=== PATIENT | female | born 1980 | race Caucasian/White ===

== ENCOUNTER 2019-04-12 04:51 | Inpatient (IN) | payer MEDICAID ==
[2019-04-12] MEDS ORDERED: Sodium Chloride 0.9% 10 ML Syringe FLUSH PRN (05:49)
[2019-04-12] MEDS ORDERED: Lactated Ringers 1,000 ML IV SCH (06:00)
[2019-04-12] MEDS ORDERED: Oxytocin/Lactated Ringers 10 UNIT/1,000 ML BAG IV SCH (06:00)
[2019-04-12] MEDS ORDERED: Benzocaine/Menthol 20%-0.5% Spray 56 GM Canister TOP PRN (08:11)
[2019-04-12] MEDS ORDERED: Witch Hazel Medicated Pads 40/Jar TOP PRN (08:11)
[2019-04-12] MEDS ORDERED: Docusate Sodium 100 MG Cap PO PRN (08:11)
[2019-04-12] MEDS ORDERED: Hydrocortisone Acetate 25 MG Supp RECTAL PRN (08:11)
--- NOTE | 2019-04-12 08:28 | PCM.LDHP ---
L&D History of Present Illness - General Date of Service: 04/12/19 Admit Problem/Dx: Admission Diagnosis/Problem Admission Diagnosis/Problem care Source of Information: Patient, Other (friend) - History of Present Illness Introduction:: 39 year old with no care presents to labor and delivery with contractions. Her friend called prior to arrival and asked if they could come in for contractions. Stated she had her friend Alisha Lundberg with an SHEILA of 3.10 and she was having contractions that started an hour prior to them calling. Patient has had no care. Had one visit with me for amenorrhea and had a positive test. At that time I ordered an ultrasound for early date confirmation that she did not come for. She then called and scheduled for this in January but did not schedule an appointment. We were unable to reach for ultrasound results. This morning she presented and was 8 cm. Reports good movement. No leaking of fluid or bleeding. Severity: Moderate Associated Symptoms: Reports: N - Related Data Allergies/Adverse Reactions: Allergies Allergy/AdvReac Type Severity Reaction Status Date / Time No Known Allergies Allergy Verified 04/12/19 08:04 Past Medical History - Past Health History Medical/Surgical History: Denies Medical/Surgical History (denies medical problems) - Past Surgical History GI Surgical History: Reports: Other (See Below) (laparotomy for "hole in diaphragm" with trauma) Endocrine Surgical History: Reports: Thyroidectomy (partial) Social & Family History - Family History Family Medical History: Noncontributory (denies other than "cancers" - uncertain what kinds) - Alcohol Use Alcohol Use History: No Alcohol Use in Last Twelve Months: No - Recreational Drug Use Recreational Drug Use: No Drug Use in Last 12 Months: No Recreational Drug Use Comment: Denies any history of drug use. When asked specificially about positive drug screen she states within last week has been "around" people using amphetamines and opioids and alcohol. States her last drink was at [employer] last year. - Living Situation & Occupation Living situation: Reports: with Significant Other Occupation: Unemployed Social History Comment: Moved her 1.5 years ago H&P Review of Systems - Review of Systems: Review Of Systems: Comprehensive ROS is negative, except as noted in HPI. L&D Exam - Exam Exam: See Below - Vital Signs Vital Signs: Last Vital Signs Temp 36.7 C 04/12/19 05:00 Pulse 103 H 04/12/19 05:00 Resp 18 04/12/19 05:00 BP 139/101 H 04/12/19 05:00 Pulse Ox 99 04/12/19 05:00 Weight: 64.864 kg - OB Specific Fundal Height In cm: 33 Contraction Intensity: Moderate to Strong Movement: Active Heart Tones: Present Presentation: Vertex - Flores Score Flores Score Effacement: >80% Flores Score Dilation: > 5 cm (10) Flores Score 's Station: +1, +2 (SROM with thick meconium) - Exam General: Alert, Moderate Distress HEENT: Conjunctiva Clear, PERRLA Neck: Supple, Trachea Midline, Other (significantly poor dentition) Lungs: Clear to Auscultation, Normal Respiratory Effort Cardiovascular: Regular Rate, Regular Rhythm GI/Abdominal Exam: Normal Bowel Sounds, Soft, Non-Tender, No Organomegaly, No Distention Rectal Exam: Normal Exam Genitourinary: Normal external exam Extremities: Normal Capillary Refill Skin: Warm, Dry, Intact Neurological: Cranial Nerves Intact, Reflexes Equal Bilateral Psychiatric: Alert, Normal Affect, Normal Mood - Patient Data Lab Results Last 24 hrs: Laboratory Results - last 24 hr 04/12/19 04/12/19 04/12/19 Range/Units 05:12 05:12 05:12 Sodium 137 (136-145) mEq/L Potassium 4.2 (3.5-5.1) mEq/L Chloride 103 (98-107) mEq/L Carbon Dioxide 19 L (21-32) mEq/L Anion Gap 19.2 H (5-15) BUN 21 H (7-18) mg/dL Creatinine 1.1 H (0.55-1.02) mg/dL Est Cr Clr Drug Dosing TNP Estimated GFR (MDRD) 55 (>60) mL/min BUN/Creatinine Ratio 19.1 H (14-18) Glucose 102 (74-106) mg/dL Calcium 8.6 (8.5-10.1) mg/dL Total Bilirubin 1.2 H (0.2-1.0) mg/dL AST 319 H (15-37) U/L ALT 239 H (14-59) U/L Alkaline Phosphatase 352 H (46-116) U/L Total Protein 7.0 (6.4-8.2) g/dl Albumin 2.8 L (3.4-5.0) g/dl Globulin 4.2 gm/dL Albumin/Globulin Ratio 0.7 L (1-2) Urine Color (Yellow) Urine Appearance (Clear) Urine pH (5.0-8.0) Ur Specific [place] (1.005-1.030) Urine Protein (Negative) Urine Glucose (UA) (Negative) Urine Ketones (Negative) Urine Occult Blood (Negative) Urine Nitrite (Negative) Urine Bilirubin (Negative) Urine Urobilinogen (0.2-1.0) Ur Leukocyte Esterase (Negative) Urine Opiates Screen (SUWJBD=955) Ur Buprenorphine Scrn (CUTOFF=10) Ur Oxycodone Screen (DCL9KV=820) Urine Methadone Screen (GNDPAY=369) Ur Propoxyphene Screen (QMFCPY=195) Ur Barbiturates Screen (JQLGTN=780) Ur Tricyclics Screen (KZOVCY=344) Ur Phencyclidine Scrn (CUTOFF=25) Ur Amphetamine Screen (ISGPMO=065) U Methamphetamines Scrn (KMNSYT=888) U Benzodiazepines Scrn (UNFVTY=088) U Cocaine Metab Screen (CFSUPR=352) U Marijuana (THC) Screen (CUTOFF=50) Ethyl Alcohol (0.00) gm% Hepatitis C Antibody Negative (NEGATIVE) Blood Type B POSITIVE Gel Antibody Screen Negative 04/12/19 04/12/19 04/12/19 Range/Units 05:12 05:25 05:25 Sodium (136-145) mEq/L Potassium (3.5-5.1) mEq/L Chloride (98-107) mEq/L Carbon Dioxide (21-32) mEq/L Anion Gap (5-15) BUN (7-18) mg/dL Creatinine (0.55-1.02) mg/dL Est Cr Clr Drug Dosing Estimated GFR (MDRD) (>60) mL/min BUN/Creatinine Ratio (14-18) Glucose (74-106) mg/dL Calcium (8.5-10.1) mg/dL Total Bilirubin (0.2-1.0) mg/dL AST (15-37) U/L ALT (14-59) U/L Alkaline Phosphatase (46-116) U/L Total Protein (6.4-8.2) g/dl Albumin (3.4-5.0) g/dl Globulin gm/dL Albumin/Globulin Ratio (1-2) Urine Color Nichole H (Yellow) Urine Appearance Slt cloudy H (Clear) Urine pH 5.5 (5.0-8.0) Ur Specific [place] > or = 1.030 (1.005-1.030) Urine Protein 1+ H (Negative) Urine Glucose (UA) Negative (Negative) Urine Ketones Trace H (Negative) Urine Occult Blood Trace-intact H (Negative) Urine Nitrite Negative (Negative) Urine Bilirubin 2+ H (Negative) Urine Urobilinogen 2.0 H (0.2-1.0) Ur Leukocyte Esterase Negative (Negative) Urine Opiates Screen Presumptive positive H (QVDEDS=937) Ur Buprenorphine Scrn Negative (CUTOFF=10) Ur Oxycodone Screen Negative (VGV2LS=039) Urine Methadone Screen Negative (YJAMVY=052) Ur Propoxyphene Screen Negative (DDAKHA=074) Ur Barbiturates Screen Negative (RVZHAJ=406) Ur Tricyclics Screen Negative (TUPEZE=051) Ur Phencyclidine Scrn Negative (CUTOFF=25) Ur Amphetamine Screen Presumptive positive H (EGAKKZ=649) U Methamphetamines Scrn Presumptive positive H (HIPZNN=448) U Benzodiazepines Scrn Negative (WTYEYU=038) U Cocaine Metab Screen Negative (SHDIYZ=945) U Marijuana (THC) Screen Negative (CUTOFF=50) Ethyl Alcohol > 3.00 (0.00) gm% Hepatitis C Antibody (NEGATIVE) Blood Type Gel Antibody Screen Result Diagrams: 04/12/19 05:12 Problem List Initiated/Reviewed/Updated: Yes Orders Last 24hrs: Active Orders 24 hr Category Date Time Status Activity as Tolerated [RC] PER UNIT ROUTINE Care 04/12/19 08:11 Active Activity as Tolerated [RC] PFP Care 04/12/19 05:49 Inactive Communication Order [RC] ASDIRECTED Care 04/12/19 05:49 Inactive Heart Tones [RC] ASDIRECTED Care 04/12/19 05:50 Inactive Non Stress Test [RC] PER UNIT ROUTINE Care 04/12/19 05:49 Inactive Notify Provider [RC] PFP Care 04/12/19 05:49 Inactive Notify Provider [RC] PRN Care 04/12/19 05:49 Inactive Peripheral IV Care [RC] . DIRECTED Care 04/12/19 05:50 Inactive Vital Signs [RC] ASDIRECTED Care 04/12/19 08:11 Active Vital Signs [RC] PER UNIT ROUTINE Care 04/12/19 05:49 Inactive Consult to Case Management/Engineering Group Leader [CONS] Cons 04/12/19 08:11 Active Routine Regular Diet [DIET] Diet 04/12/19 Lunch Active CBC W/O DIFF,HEMOGRAM [HEME] Routine Lab 04/13/19 07:55 Ordered COMPREHENSIVE METABOLIC PN,CMP [CHEM] AM Lab 04/13/19 05:11 Ordered HEPATITIS B SURFACE AG [CHEM] Stat Lab 04/12/19 05:25 Received HIV AG/AB W/REFLEX [REF] Stat Lab 04/12/19 05:25 Received PATIENT RETYPE [BBK] Routine Lab 04/12/19 07:17 Ordered RAPID PLASMA REAGIN,RPR [CHEM] Routine Lab 04/12/19 05:25 Received RUBELLA ANTIBODY IGG [CHEM] Stat Lab 04/12/19 05:25 Received Benzocaine/Menthol [Dermoplast Pain Relief [place]] Med 04/12/19 08:11 Active See Dose Instructions TOP ASDIRECTED PRN Docusate Sodium [Colace] Med 04/12/19 08:11 Active 100 mg PO BID PRN Hydrocortisone Acetate [Anucort-HC] Med 04/12/19 08:11 Active 25 mg RECTAL BID PRN Ibuprofen [Motrin] Med 04/12/19 08:11 Active 600 mg PO Q6H PRN Witch Perla [Tucks] Med 04/12/19 08:11 Active 1 pad TOP ASDIRECTED PRN Assess Lochia [WOMSER] Per Unit Routine Oth 04/12/19 08:11 Ordered Assess Uterine Involution [WOMSER] Per Unit Routine Oth 04/12/19 08:11 Ordered Breast Pump [WOMSER] Per Unit Routine Oth 04/12/19 08:11 Ordered Heat Therapy [OM.PC] PRN Oth 04/12/19 08:11 Ordered Heat Therapy [OM.PC] PRN Oth 04/13/19 08:11 Ordered Medication Administration Instruction [OM.PC] Routine Oth 04/12/19 08:11 Ordered Perineal Care [OM.PC] Per Unit Routine Oth 04/12/19 08:11 Ordered Sitz Bath [OM.PC] Per Unit Routine Oth 04/12/19 08:11 Ordered Resuscitation Status Routine Resus Stat 04/12/19 05:49 Ordered Medication Orders Benzocaine/Menthol (Dermoplast Pain Relief [place]) 0 gm TOP ASDIRECTED PRN PRN Reason: Perineal Comfort Measure Docusate Sodium (Colace) 100 mg PO BID PRN PRN Reason: Constipation Hydrocortisone Acetate (Anucort-Hc) 25 mg RECTAL BID PRN PRN Reason: Hemorrhoid pain Ibuprofen (Motrin) 600 mg PO Q6H PRN PRN Reason: Mild pain or fever Witch Perla (Tucks) 1 pad TOP ASDIRECTED PRN PRN Reason: Pain Assessment/Plan Comment:: 39 year old with no care at 36w5d by best dating available which is a second trimester ultrasound. Active labor and rapid thereafter. See delivery note. package labs Given no care and mild hypertension (could be pain related) will get package, urine toxicology, CMP, CBC. Meconium so notify pullboat engineer for delivery. Social work consult given no care.
--- NOTE | 2019-04-12 08:44 | PCM.SN ---
- Free Text/Narrative Note: Stage I - Patient presented in active labor. SROM thick meconium stained amniotic fluid. Progressed to complete. Stage II - of viable female, weight 2390g, 8/9 APGARS at 0530. Head delivered in controlled manner over intact perineum. Body and shoulders without difficulty. Cord clamped and cut and taken to warmer for evaluation. Stage III - of intact placenta. 3vc. Meconium stained. EBL 200. No lacerations.
--- NOTE | 2019-04-12 08:46 | PCM.SN ---
- Free Text/Narrative Note: Discussed lab results with patient. Discussed when chemistry panel returned with significantly elevated LFTs I did add a blood alcohol given the other positive drug testing. Discussed presumptive positives for opioids, amphetamine and methamphetamine. Patient reports no history of use either now or in past. Does state she has been around it recently but not used herself. Discussed will consult case management social worker and contact [facility] case management social worker. Patient voices understanding.
[2019-04-12] MEDS: Nicotine 14 MG/24 Hr Patch TRDERM SCH (17:00)
[2019-04-12] MEDS: Ibuprofen 600 MG Tab PO PRN (20:06)
[2019-04-12] MEDS: LORazepam 1 MG Tab PO PRN (21:34)
[2019-04-13] MEDS: Ibuprofen 600 MG Tab PO PRN ×3 (04:04→21:16)
[2019-04-13] MEDS: LORazepam 1 MG Tab PO PRN ×4 (04:05→21:15)
[2019-04-13] MEDS ORDERED: Acetaminophen 325 MG Tab PO PRN (08:33)
--- NOTE | 2019-04-13 08:34 | PCM.PNPP ---
- General Info Date of Service: 04/13/19 Functional Status: Reports: Pain Controlled - Review of Systems General: Reports: No Symptoms HEENT: Reports: No Symptoms Pulmonary: Reports: No Symptoms Cardiovascular: Reports: No Symptoms Gastrointestinal: Reports: No Symptoms Genitourinary: Reports: No Symptoms Musculoskeletal: Reports: No Symptoms Skin: Reports: No Symptoms Neurological: Reports: No Symptoms Psychiatric: Reports: No Symptoms - General Info Date of Service: 04/13/19 - Patient Data Vital Signs - Most Recent: Last Vital Signs Temp 36.7 C 04/13/19 04:05 Pulse 60 04/13/19 04:05 Resp 18 04/13/19 04:05 BP 138/97 H 04/13/19 04:05 Pulse Ox 94 L 04/13/19 04:05 Weight - Most Recent: 64.864 kg I&O - Last 24 Hours: Intake & Output 04/12/19 04/13/19 04/13/19 22:59 06:59 14:59 Intake Total 680 Balance 680 Lab Results - Last 24 Hours: Laboratory Results - last 24 hr 04/12/19 04/13/19 04/13/19 Range/Units 05:25 05:42 05:42 WBC 14.79 H (3.98-10.04) K/mm3 RBC 4.40 (3.98-5.22) M/mm3 Hgb 13.7 (11.2-15.7) gm/dl Hct 42.7 (34.1-44.9) % MCV 97.0 H (79.4-94.8) fl MCH 31.1 (25.6-32.2) pg MCHC 32.1 L (32.2-35.5) g/dl RDW Std Deviation 46.3 (36.4-46.3) fL Plt Count 173 L (182-369) K/mm3 MPV 12.5 H (9.4-12.3) fl Sodium 140 (136-145) mEq/L Potassium 4.4 (3.5-5.1) mEq/L Chloride 105 (98-107) mEq/L Carbon Dioxide 25 (21-32) mEq/L Anion Gap 14.4 (5-15) BUN 10 (7-18) mg/dL Creatinine 0.9 (0.55-1.02) mg/dL Est Cr Clr Drug Dosing 69.42 mL/min Estimated GFR (MDRD) > 60 (>60) mL/min BUN/Creatinine Ratio 11.1 L (14-18) Glucose 49 L (74-106) mg/dL Calcium 8.5 (8.5-10.1) mg/dL Total Bilirubin 0.5 (0.2-1.0) mg/dL AST 286 H (15-37) U/L ALT 213 H (14-59) U/L Alkaline Phosphatase 275 H (46-116) U/L Total Protein 6.5 (6.4-8.2) g/dl Albumin 2.5 L (3.4-5.0) g/dl Globulin 4.0 gm/dL Albumin/Globulin Ratio 0.6 L (1-2) RPR Non-reactive (NONREACTIVE) Med Orders - Current: Current Medications Benzocaine/Menthol (Dermoplast Pain Relief [place]) 0 gm TOP ASDIRECTED PRN PRN Reason: Perineal Comfort Measure Diphtheria/Tetanus/Acell Pertussis (Adacel) 0.5 ml IM .ONCE ONE Stop: 04/13/19 18:09 Docusate Sodium (Colace) 100 mg PO BID PRN PRN Reason: Constipation Hydrocortisone Acetate (Anucort-Hc) 25 mg RECTAL BID PRN PRN Reason: Hemorrhoid pain Ibuprofen (Motrin) 600 mg PO Q6H PRN PRN Reason: Mild pain or fever Last Admin: 04/13/19 04:04 Dose: 600 mg Influenza Virus Vaccine (Fluzone Quad [id number] Syringe) 60 mcg IM .ONCE ONE Stop: 04/13/19 18:10 Lorazepam (Ativan) 1 mg PO Q3HR PRN PRN Reason: Anxiety Last Admin: 04/13/19 04:05 Dose: 1 mg Miscellaneous Information (Remove Patch) 1 ea TRDERM DAILY [facility] Nicotine (Habitrol) 14 mg TRDERM DAILY [facility] Last Admin: 04/12/19 17:00 Dose: 14 mg Witch Trev (Tucks) 1 pad TOP ASDIRECTED PRN PRN Reason: Pain Discontinued Medications Lactated Ringer's (Ringers, Lactated) 1,000 mls @ 100 mls/hr IV ASDIRECTED SHARATH Last Admin: 04/12/19 05:20 Dose: 100 mls/hr Oxytocin/Lactated Ringer's (Pitocin In Lr 10 Units/1,000 Ml) 10 unit in 1,000 mls @ 500 mls/hr IV .CONTINUOUS SHARATH Last Admin: 04/12/19 05:32 Dose: 500 mls/hr Sodium Chloride (Saline Flush) 10 ml FLUSH ASDIRECTED PRN PRN Reason: Keep Vein Open - Infant Interaction Disposition, : [employer] at Bedside - Recovery Exam Fundal Tone: Firm Fundal Level: 1 Fingerbreadths Below Umbilicus Fundal Placement: Midline Lochia Amount: Small Lochia Color: Rubra/Red Perineum Description: Intact, Minimal Bruising/Swelling Episiotomy/Laceration: None Bladder Status: Voiding Urinary Elimination: Voided - Exam General: Alert, Oriented HEENT: Pupils Equal Neck: Supple Lungs: Clear to Auscultation, Normal Respiratory Effort Cardiovascular: Regular Rate, Regular Rhythm GI/Abdominal Exam: Normal Bowel Sounds, Soft, Non-Tender, No Organomegaly, No Distention, No Abnormal Bruit, No Mass, Pelvis Stable Extremities: Normal Inspection, Normal Range of Motion, Non-Tender, No Pedal Edema, Normal Capillary Refill Wound/Incisions: Healing Well Neurological: No New Focal Deficit Psy/Mental Status: Alert, Normal Affect, Normal Mood - Problem List Review Problem List Initiated/Reviewed/Updated: Yes - My Orders Last 24 Hours: My Active Orders 04/12/19 08:11 Vital Signs [RC] Q4HR Consult to Case Management/Blood Bank Assistant [CONS] Routine Benzocaine/Menthol [Dermoplast Pain Relief [place]] See Dose Instructions TOP ASDIRECTED PRN Docusate Sodium [Colace] 100 mg PO BID PRN Hydrocortisone Acetate [Anucort-HC] 25 mg RECTAL BID PRN Ibuprofen [Motrin] 600 mg PO Q6H PRN witch Trev [Tucks] 1 pad TOP ASDIRECTED PRN Assess Lochia [WOMSER] Per Unit Routine Assess Uterine Involution [WOMSER] Per Unit Routine Breast Pump [WOMSER] Per Unit Routine Heat Therapy [OM.PC] PRN Medication Administration Instruction [OM.PC] Routine Perineal Care [OM.PC] Per Unit Routine Sitz Bath [OM.PC] Per Unit Routine 04/12/19 16:45 Nicotine [Habitrol] 14 mg TRDERM DAILY 02/16/20 18:08 Vaccines to be Administered [RC] PER UNIT ROUTINE 04/12/19 21:15 LORazepam [Ativan] 1 mg PO Q3HR PRN 04/12/19 Lunch Regular Diet [DIET] 04/13/19 08:11 Heat Therapy [OM.PC] PRN 04/13/19 09:00 Remove Patch 1 ea TRDERM DAILY 04/13/19 18:08 Diphth,Pertuss(Acell),Tet Vac [Adacel] 0.5 ml IM .ONCE ONE 04/13/19 18:09 FLU Vacc [id number](6MOS+)/PF [Fluzone Quad [id number] Syringe] 60 mcg IM .ONCE ONE - Assessment Assessment:: No care. Doing well - has required some ativan for anxiety - CIWA protocol.
[2019-04-13] MEDS: Nicotine 14 MG/24 Hr Patch TRDERM SCH (08:48)
[2019-04-13] MEDS ORDERED: Diphtheria,Pertussis(Acell),Tetanus Vaccine 0.5 ML Syringe IM ONE (18:08)
[2019-04-13] MEDS ORDERED: FLU Vacc QS2019-20(6MOS+)/PF 60 MCG/0.5 ML SYRINGE IM ONE (18:09)
[2019-04-14] MEDS: LORazepam 1 MG Tab PO PRN ×3 (00:51→09:41)
[2019-04-14] MEDS: Ibuprofen 600 MG Tab PO PRN (06:25)
--- NOTE | 2019-04-14 09:37 | PCM.DCSUM1 ---
Discharge Summary - Hospital Course Brief History: 39 year old with no care presented in active labor. Rapid . Some signs of drug and or alcohol withdrawl through stay (agitation, anxiety, itching) treated with ativan. Less withdrawl symptoms than expected based on frequency of use admitted. Diagnosis: Stroke: No - Discharge Data Discharge Date: 04/14/19 Discharge Disposition: DC/Tfer to Inpt Rehab Fac 62 Condition: Good - Referral to Home Health Primary Care Physician: Maricruz Jara MD - Patient Summary/Data Consults: Consultations 04/12/19 08:11 Consult to Case Management/What Job Titles Mean [CONS] Routine - Patient Instructions Diet: Usual Diet as Tolerated Activity: No Strenuous Activities Driving: May Drive Today Showering/Bathing: June Shower Notify Provider of: Fever, Increased Pain, Swelling and Redness, Drainage, Nausea and/or Vomiting - Discharge Plan *PRESCRIPTION DRUG MONITORING PROGRAM REVIEWED*: No *COPY OF PRESCRIPTION DRUG MONITORING REPORT IN PATIENT JERRY: No Patient Handouts: Home Care Instructions for Mom, Steps to Quit Smoking Referrals: Maricruz Jara MD [Primary Care Provider] - (2 weeks) - Discharge Summary/Plan Comment DC Time >30 min.: No - General Info Date of Service: 04/14/19 Functional Status: Reports: Pain Controlled - Review of Systems General: Reports: Fatigue HEENT: Reports: No Symptoms Pulmonary: Reports: No Symptoms Cardiovascular: Reports: No Symptoms Gastrointestinal: Reports: No Symptoms Genitourinary: Reports: No Symptoms Musculoskeletal: Reports: No Symptoms Skin: Reports: No Symptoms Neurological: Reports: No Symptoms Psychiatric: Reports: No Symptoms - Patient Data Vitals - Most Recent: Last Vital Signs Temp 37.1 C 04/13/19 21:12 Pulse 76 04/14/19 05:04 Resp 15 04/14/19 05:04 BP 122/89 04/14/19 05:04 Pulse Ox 98 04/14/19 05:04 Weight - Most Recent: 64.864 kg I&O - Last 24 hours: Intake & Output 04/13/19 04/14/19 04/14/19 22:59 06:59 14:59 Intake Total 1370 Balance 1370 Lab Results - Last 24 hrs: Laboratory Results - last 24 hr 04/12/19 Range/Units 05:25 Hep Bs Antigen Nonreactive (NONREACTIVE) Rubella IgG Antibody Reactive (pos) (REACTIVE) Med Orders - Current: Current Medications Acetaminophen (Tylenol) 650 mg PO Q6H PRN PRN Reason: Pain Last Admin: 04/13/19 08:50 Dose: 650 mg Benzocaine/Menthol (Dermoplast Pain Relief [place]) 0 gm TOP ASDIRECTED PRN PRN Reason: Perineal Comfort Measure Docusate Sodium (Colace) 100 mg PO BID PRN PRN Reason: Constipation Hydrocortisone Acetate (Anucort-Hc) 25 mg RECTAL BID PRN PRN Reason: Hemorrhoid pain Ibuprofen (Motrin) 600 mg PO Q6H PRN PRN Reason: Mild pain or fever Last Admin: 04/14/19 06:25 Dose: 600 mg Lorazepam (Ativan) 1 mg PO Q3HR PRN PRN Reason: Anxiety Last Admin: 04/14/19 06:25 Dose: 1 mg Miscellaneous Information (Remove Patch) 1 ea TRDERM DAILY [facility] Nicotine (Habitrol) 14 mg TRDERM DAILY [facility] Last Admin: 04/13/19 08:48 Dose: 14 mg Witch Perla (Tucks) 1 pad TOP ASDIRECTED PRN PRN Reason: Pain Discontinued Medications Diphtheria/Tetanus/Acell Pertussis (Adacel) 0.5 ml IM .ONCE ONE Stop: 04/13/19 18:09 Last Admin: 04/13/19 18:32 Dose: 0.5 ml Lactated Ringer's (Ringers, Lactated) 1,000 mls @ 100 mls/hr IV ASDIRECTED [facility] Last Admin: 04/12/19 05:20 Dose: 100 mls/hr Oxytocin/Lactated Ringer's (Pitocin In Lr 10 Units/1,000 Ml) 10 unit in 1,000 mls @ 500 mls/hr IV .CONTINUOUS SHARATH Last Admin: 04/12/19 05:32 Dose: 500 mls/hr Influenza Virus Vaccine (Fluzone Quad [id number] Syringe) 60 mcg IM .ONCE ONE Stop: 04/13/19 18:10 Last Admin: 04/13/19 18:34 Dose: 60 mcg Sodium Chloride (Saline Flush) 10 ml FLUSH ASDIRECTED PRN PRN Reason: Keep Vein Open - Exam General: Reports: Lethargic, Other (in bed, somewhat resistent to arousing for conversation. Partner in bed with her. ) HEENT: Reports: Pupils Equal, Pupils Reactive Lungs: Reports: Normal Respiratory Effort Cardiovascular: Reports: Regular Rate, Regular Rhythm GI/Abdominal Exam: Soft, Non-Tender, No Distention Extremities: Normal Inspection Neurological: Reports: No New Focal Deficit Psy/Mental Status: Reports: Alert, Labile Mood, Agitated, Other (drowsy and reluctant to wake to answer questions, out of proportion to typical )
[2019-04-14] MEDS: Nicotine 14 MG/24 Hr Patch TRDERM SCH (09:40)
== END 2019-04-14 14:37 | DRG 807 ==
LOC: JD.OB 04:51 → JD.OBCHECK 04:51 → JD.OB 05:30 → JD.OBCHECK 05:30
PROVIDERS: ADMIT Obstetrics & Gynecology; ATTEND Obstetrics & Gynecology
PROC: 10E0XZZ Delivery of Products of Conception, External Approach (ICD-10-PCS; principal; 2019-04-12)
DX: O77.0 Labor and delivery complicated by meconium in amniotic fluid (principal); Z37.0 Single live birth; Z90.89 Acquired absence of other organs; Z3A.36 36 weeks gestation of pregnancy
CPT/HCPCS: 36415; 51701; 59409; 80053; 80306; 80307; 81003; 85027; 86592; 86762; 86803; 86850; 86900; 86901; 87340; 90471; 90686; 90715; A9270-GY; G0475; J2590; J7120